=== PATIENT | female | born 1950 | race Caucasian/White ===

== ENCOUNTER → 2016-09-25 | Outpatient (CLI) | payer OTHER ==
[~2016-09-25] MED LIST: ALDACTAZIDE PO; ASPIRIN81 M1 PO; BACITRACIN1 GM OINT EXT; COLACE PO; EFFEXOR75 MG PO; HYDROCHLOROTH12.5 MG PO; KEFLEX500 M1 PO; METOPROLOL SUCC25 MG; MILK OF MAGNESIA PO; NORCO 5/325 TAB1 TAB PO; NORVASC10 MG PO; PRAVACHOL PO; PRILOSEC; PRINIVIL40 MG PO; ZOFRAN 4 MG4 MG/2 ML IV
--- NOTE | ~2016-09-25 | US77 ---
[facility] A Service of [facility] & [facility] / [facility] RADIOLOGY TEXT RESULTS PATIENT: STEFANIE HOOVER LOCATION: [facility] : 54 UNIT #: [id number] AGE: [address]: Caleb Lozada MD SEX: F ORDER DR: [id number] [facility] [address] [place], [place] [address] [id number] O MR#: [id number] Acc #: [id number] NAME: STEFANIE HOOVER : 1950 SEX: F STUDY DATE/TIME: 09/25/2016 13:18 UNIT: [facility] ROOM: STUDY DESCRIPTION: US Kidney Bilateral Complete Attending Physician: Bal Lozada M.D. Referring Physician: Bal Lozada M.D. Ordering Physician: Bal Lozada M.D. Primary Care Physician: April Aragon A.P.R.N. MEDICAL IMAGING REPORT This report is preliminary unless electronic signature is present EXAMINATION Bilateral renal ultrasound. DATE 09/25/2016 HISTORY Acute renal failure. GFR 29.2. BUN 32. Creatinine 1.8. COMPARISON None. FINDINGS Urinary bladder has an unremarkable sonographic appearance. The right kidney measures 9.2 x 3.7 x 3.8 cm. The left kidney measures 9.2 x 4.8 x 4.3 cm. A hypoechoic lesion is demonstrated within the anterior left mid kidney measuring 1.5 x 1.6 x 1.4 and does not have a sonographic appearance of a simple cyst. Another hypoechoic lesion is demonstrated in the right upper renal pole measuring 1.1 x 1.1 x 1.3 cm and does not have a typical sonographic appearance of a simple cyst. No shadowing renal stone or hydronephrosis is seen on either side. Renal cortical thickness is maintained with normal echotexture. IMPRESSION 1. Single hypoechoic lesions are demonstrated within each kidney as described above. These do not conform to the appearance of simple cysts on ultrasound. Consider CT abdomen without and with contrast renal mass protocol for further evaluation. However, if the patient maintains impaired renal function, continued short-term surveillance [facility] A Service of [facility] & [facility] / [facility] RADIOLOGY TEXT RESULTS PATIENT: STEFANIE HOOVER LOCATION: [facility] : 54 UNIT #: [id number] AGE: [address]: Caleb Lozada MD SEX: F ORDER DR: ultrasound would be recommended as an alternative. 2. No hydronephrosis. 3. Normal urinary bladder. Dictated by... Tiffany Wilcox M.D. THIS IS AN ELECTRONICALLY VERIFIED REPORT Tiffany Wilcox M.D. at 09/26/2016 12:11 PM ANA/evi TD: 09/25/2016 22:12 JOB #: [id number] MEDICAL IMAGING REPORT Page 1 of 1 COPY
[2016-09-25 13:42] LABS: URINE APPEARANCE CLEAR; URINE BILIRUBIN NEG (NEG); URINE BLOOD NEG (NEG); URINE COLOR YELLOW; URINE GLUCOSE NEG (NEG); URINE KETONE NEG (NEG); URINE LEUKOCYTE ESTERASE NEG (NEG); URINE NITRATE NEG (NEG); URINE PROTEIN 2+ (NEG); URINE SPECIFIC GRAVITY 1.009 (1.003-1.035); URINE UROBILINOGEN 0.2 MG/DL (NEG)
[2016-09-25 13:43] LABS: URBCS1 AUWI 0-2 /[HPF] (0-2); URINE BACTERIA AUWI NEG (NEGATIVE); URINE SQUAMOUS EPITHELIAL CELL NONE SEEN /[HPF]; UWBCS1 AUWI 0-2 (0-5)
[2016-09-25 13:48] LABS: URINE SOURCE CLEAN CATCH
[2016-09-25 13:50] LABS: ALBUMIN SERUM 3.9 g/dL (3.5-5.0); BILIRUBIN,TOTAL 0.4 mg/dL (0.2-2.0); BUN/CREATININE RATIO 17.77; CALCIUM SERUM 9.4 mg/dL (8.4-10.2); CREATININE SERUM 1.8 mg/dL (0.6-1.4); GLOM FILT RATE Estimated 29.2 mL/min (>60); PHOSPHOROUS 3.5 mg/dL (2.5-4.6); POTASSIUM 4.4 mmol/L (3.5-5.1); PROTEIN TOTAL SERUM 8.5 g/dL (6.0-8.3); URIC ACID 6.4 mg/dL (2.6-7.2)
[2016-09-25 13:52] LABS: CREATININE,RANDOM URINE 46 mg/dL; TOTAL PROTEIN,RANDOM URINE 118 mg/dl (<10)
[2016-09-27 17:41] LABS: COMPLEMENT C3 204 mg/dL (90-180); COMPLEMENT C4 53 mg/dL (16-47)
[2016-10-01 21:36] LABS: ANA SCREEN Negative (Negative); CALCIUM (PTHINTACT) 9.8 mg/dL (8.6-10.4); MYELOPEROXIDASE AB (PNL) <1.0 AI (<1.0); PROTEINASE-3 AB (PNL) <1.0 AI (<1.0)
== END | disposition home or self-care (01) ==
LOC: SGUS 11:00 → CGUS 12:26 → SGUS 12:45
PROVIDERS: Internal Medicine Nephrology
DX: N17.9 Acute kidney failure, unspecified (principal); N08 Glomerular disorders in diseases classified elsewhere; N28.89 Other specified disorders of kidney and ureter
CPT/HCPCS: 36415; 76770; 80053; 81003; 82310; 82570; 83520; 83970; 84100; 84156; 84550; 86021; 86038; 86039; 86160; 86334